=== PATIENT | male | born 2000 | race Caucasian/White ===

== ENCOUNTER 2025-03-12 13:57 | Emergency (ER) | payer OTHER, SELFPAY ==
[2025-03-12 13:59] VITALS: BP 103/60; PULSE 106; RESP 16; TEMP 38.7; O2SAT 100
== END 2025-03-12 15:11 | disposition left against medical advice (07) ==
LOC: ER 14:27
DX: Z53.21 Procedure and treatment not carried out due to patient leaving prior to being seen by health care provider (principal)